=== PATIENT | female | born 1945 | race Caucasian/White ===

== ENCOUNTER 2017-01-18 09:42 | Observation (INO) | payer MEDICARE, BC ==
--- NOTE | ~2017-01-18 | DS ---
Discharge Summary [facility] [address] [place]. [address] NAME: NICHOLE GUARDADO : 41 STATUS : DIS Shanice PAT#: [id number] AGE: 71 ADM/REG DATE : 01/18/17 MR#: [id number] REPORT SERV DATE: 01/20/17 DICTATED BY: JR. HERNANDEZ WILLIAM JOHN DATE: 01/19/17 REPORT STATUS : Draft TRANSCRIBED BY: ALHAJI DATE: 01/19/17 ADMISSION DATE: 01/18/2017 DISCHARGE DATE: 01/19/2017 DISCHARGE DIAGNOSES: Include: 1. Atrial fibrillation with rapid ventricular response with reversion to sinus rhythm after synchronized cardioversion. 2. History of hypertension. 3. History of hyperlipidemia. 4. History of gastroesophageal reflux disease. 5. Mild systolic heart failure with ejection fraction 45%. OPERATIONS, PROCEDURES, AND TREATMENTS: Include: 1. Direct current cardioversion by Dr. Hicks on 01/19. 2. Chest x-ray done 01/18 with mild blunting of the left costophrenic angle and vascular crowding. 3. Echocardiogram, which showed left ventricular size to be normal, left ventricular systolic function with mild global hypokinesia and ejection fraction 45%, systolic function was indeterminate, right ventricular size and function was normal, there was no significant valvular disease. DISCHARGE MEDICATIONS: Include: 1. Eliquis 5 mg orally twice a day. 2. Lipitor 20 mg orally daily. 3. Calcium plus D two tablets orally daily. 4. Omeprazole 40 daily. 5. Sotalol 40 twice a day. 6. Multivitamin tablet orally daily. 7. Flaxseed oil 1200 mg orally daily. 8. B complex daily. 9. Cranberry 850 daily. 10.Vitamin C one tablet daily. 11.Lasix 20 mg daily p.r.n. for shortness of breath. HOSPITAL COURSE: The patient is a 71-year-old female, who presented to the emergency room on 01/18/2017 with complaint of shortness of breath and palpitations with "racing heart." The patient has a history of atrial fibrillation for at least five years and has been cardioverted many times, most recently in November. She previously saw Dr. Taylor at [place] and was on propafenone over the last 18 months approximately. She is currently on Eliquis. She just got back from a cruise. 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 Initial exam showed heart rate 96, blood pressure 132/73, respiratory rate of 18. Exam was unremarkable, except an irregularly irregular heart rhythm. Laboratory was unremarkable. EKG showed atrial fibrillation with rapid ventricular response initially at 140-150 beats per minute. A chest x-ray showed changes of fluid overload. Discharge Summary [address] [address] NAME: NICHOLE GUARDADO : 41 STATUS : DIS Shanice PAT#: [id number] AGE: 71 ADM/REG DATE : 01/18/17 MR#: [id number] REPORT SERV DATE: 01/20/17 DICTATED BY: JR. HERNANDEZ WILLIAM JOHN DATE: 01/19/17 REPORT STATUS : Draft TRANSCRIBED BY: ALHAJI DATE: 01/19/17 The patient was admitted to the clinical decision unit for atrial fibrillation with rapid response with fluid overload secondary to rapid ventricular response. She was gently diuresed and had an echocardiogram, which is detailed above. This did show mild systolic heart failure. The patient was placed on sotalol, her propafenone was discontinued, and she underwent a direct current cardioversion on 01/19 with success and total resolution of her shortness of breath. The patient will be discharged home on sotalol and Eliquis and follow up with Dr. Lyon in one week. Diet will be regular. Activity as tolerated. For discharge exam and laboratory, please see daily progress note. WJF/ALHAJI Paulino Hernandez Jr, MD / [id number] CC: Paulino Hernandez Jr, MD Donald Hartsfield, D.O.
--- NOTE | ~2017-01-18 | CN ---
Consultation Report [facility] [address] [place]. [address] NAME: NICHOLE GUARDADO : 41 STATUS : ADM Shanice PAT#: [id number] AGE: 71 ADM/REG DATE : 01/18/17 MR#: [id number] REPORT SERV DATE: 01/18/17 DICTATED BY: XAVI MART DATE: 01/18/17 REPORT STATUS : Draft TRANSCRIBED BY: MODL DATE: 01/18/17 CARDIOLOGY CONSULTATION DATE OF CONSULTATION: 01/18/2017 REASON FOR CONSULTATION: Recurrent atrial fibrillation/flutter. HISTORY OF PRESENT ILLNESS: The patient is a 71-year-old female with a history of paroxysmal atrial fibrillation, previously followed by Dr. Cele Taylor at the [facility] in [place]. The patient reports a history of five cardioversions in the last four years. Most recent cardioversion was in November 2016. The patient has been on chronic Eliquis and propafenone for stroke prophylaxis and for prevention of her atrial fibrillation. There has been a recent discussion per the patient with Dr. Boyle regarding possible referral for ablation or for transition to from propafenone to amiodarone. Amiodarone was not initiated due to the patient's hesitance due to potential long-term side effects. The patient in the wee hours this morning developed acute onset of rapid palpitations and racing with associated dyspnea. She denies chest pain. She was seen in the emergency department and noted to be in atrial fibrillation with rapid ventricular rate, treated with intravenous diltiazem with decrease in heart rate and improvement in symptoms. Initial troponin was negative with elevated beta natriuretic peptide, elevated at 444. Chest x-ray suggested mild congestive heart failure. Subsequent EKG and telemetry demonstrating intermittent atrial fibrillation and atypical atrial flutter. The patient has been on chronic Eliquis. She denies any missed doses in the last month. PAST MEDICAL HISTORY: 1. Paroxysmal atrial fibrillation with five cardioversions in the last four years , on propafenone and Eliquis. 2. Chronic anticoagulation, on Eliquis. 3. GERD. 4. Anxiety disorder. SOCIAL HISTORY: Denies previous tobacco, alcohol, or illicit drug use. FAMILY HISTORY: Father with history of myocardial infarction, older age. REVIEW OF SYSTEMS: Negative for all organ systems except per the history of present illness. PHYSICAL EXAMINATION: VITAL SIGNS: Blood pressure 142/100, pulse currently 106 and irregular, respirations 16 and unlabored, saturating 98% on 2 liters nasal cannula. GENERAL: Elderly female, in no acute distress. HEENT: Normal. Consultation Report [place] [id number] [place]. [address] NAME: NICHOLE GUARDADO : 41 STATUS : ADM Shanice PAT#: [id number] AGE: 71 ADM/REG DATE : 01/18/17 MR#: [id number] REPORT SERV DATE: 01/18/17 DICTATED BY: XAVI MART DATE: 01/18/17 REPORT STATUS : Draft TRANSCRIBED BY: MODL DATE: 01/18/17 NECK: Supple, no JVD or bruit, normal carotid upstroke bilaterally, no thyromegaly. LUNGS: Crackles are noted in the bases bilaterally. CARDIOVASCULAR: Irregularly regular rhythm. ABDOMEN: Bowel sounds positive, soft, nontender, and nondistended. No masses or aortic bruits. No hepatosplenomegaly or hepatojugular reflux. EXTREMITIES: No edema. Normal pulses. No clubbing or cyanosis. SKIN: Warm and dry, no significant rash. NEUROLOGIC: Alert and oriented x 3. Appropriate mood. LABORATORY DATA: Sodium 142, potassium 3.7, chloride 107, BUN 10, creatinine 0.74, GFR 93 mL per minute, glucose 107, magnesium 1.9. WBC 10.7, hemoglobin 14, hematocrit 39.4, platelets 204,000. Troponin less than 0.02 with a beta natriuretic peptide of 444. EKG: EKG on admission appears to be atypical atrial flutter versus atrial fibrillation. IMPRESSION: 1. Paroxysmal atrial fibrillation/flutter. Discontinue propafenone and Toprol or metoprolol. Begin sotalol 40 mg b.i.d. First dose now. Continue Eliquis. Schedule the patient for cardioversion in the a.m. Continue intravenous diltiazem at this time for rate control. The risks, benefits, alternatives of cardioversion have been discussed with the patient. Complications including but not limited to, , myocardial infarction, stroke, superficial skin burn, over-sedation and complications of respiratory failure, hypotension and/or bradycardia as well as the potential for life-threatening arrhythmias and asystole been discussed with the patient. The patient voices understanding to the potential risks and desires to proceed. 2. Hypertension, mildly elevated on admission. We will continue to follow the same. 3. Congestive heart failure by exam, likely rate related. Echocardiogram to evaluate left ventricular systolic function. The patient reports previous nuclear stress test as well as echocardiogram in the recent past. Old records have been ordered. Thank you for the opportunity to see the patient in consultation. We will continue to follow the patient with you. CSL/ALHAJI Mario Mart M.D. / [id number] CC: Paulino Hernandez Jr, MD Donald Hartsfield, D.O.
--- NOTE | ~2017-01-18 | OP ---
Record Of Operation [facility] [address] [place]. [address] NAME: NICHOLE GUARDADO : 41 STATUS : ADM Shanice PAT#: [id number] AGE: 71 ADM/REG DATE : 01/18/17 MR#: [id number] REPORT SERV DATE: 01/19/17 DICTATED BY: DATE: REPORT STATUS : Draft TRANSCRIBED BY: MODL DATE: 01/19/17 DATE OF PROCEDURE: 01/19/2017 CHIEF COMPLAINT/REASON FOR PROCEDURE: Atrial fibrillation. Written informed consent obtained. Please see chart for documentation. It was verified that the patient had been on therapeutic anticoagulation for greater than four to six weeks time. With the assistance of my Anesthesia colleague, she was sedated for the procedure. Following verification of sedation, DC cardioversion was performed, 200 joules x1 with return to sinus rhythm. IMPRESSION: Successful DC cardioversion. [facility]/ALHAJI Mickie Hicks M.D. / [id number] CC: Paulino Hernandez Jr, MD Donald Hartsfield, D.O.
--- NOTE | ~2017-01-18 | HP ---
History And Physical [place] [id number] [place]. [address] NAME: NICHOLE GUARDADO : 41 STATUS : ADM Shanice PAT#: [id number] AGE: 71 ADM/REG DATE : 01/18/17 MR#: [id number] REPORT SERV DATE: 01/18/17 DICTATED BY: MARA SOLER DATE: 01/18/17 REPORT STATUS : Draft TRANSCRIBED BY: ALHAJI DATE: 01/18/17 DATE OF ADMISSION: 01/18/2017 CHIEF COMPLAINT: Shortness of breath, heart racing. HISTORY OF PRESENT ILLNESS: The patient is a 71-year-old white female. The patient reports she has had AFib fibrillation for at least the last five years. She has been cardioverted five times, last cardioverted in November. She previously saw Dr. Boyle at [facility]. She has been on propafenone over the last year and a half, and she is currently on Eliquis. 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 She felt short of breath and had some pressure in her back. She had no chest pain. She knew she was in AFib. She has had several episodes in the past, and she presented to the hospital. She has had no leg edema that she knows of and no weight gain. She has had a slight cough, but no real sputum, no fevers, no chills. PAST MEDICAL HISTORY: 1. AFib. 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 3. Mitral valve prolapse. 4. Hypertension. 5. Hyperlipidemia. 6. Osteoarthritis. 7. GERD. ALLERGIES: SELDANE, AZITHROMYCIN, AND CIPRO. SOCIAL HISTORY: She is a nonsmoker, nondrinker. She is . She lives independently. FAMILY HISTORY: Positive for her mom had diabetes. Her father had CAD in his 80s. PAST SURGICAL HISTORY: She has had a tonsillectomy and a kidney biopsy in the 1970s. HOME MEDICATIONS: Fully reviewed and attached in the MAR. REVIEW OF SYSTEMS: A full 10-point review of systems obtained, pertinent positives mentioned in the HPI. PHYSICAL EXAMINATION: VITAL SIGNS: Pulse is currently 96, BP 132/73, sats 95%, respiratory rate 18. GENERAL: A Well-developed white female, in no apparent distress. HEENT: Normocephalic, atraumatic. Throat is clear. NECK: Supple. HEART: Irregularly irregular. LUNGS: She has crackles about one-third of her lung bases. ABDOMEN: Soft, nontender, nondistended. EXTREMITIES: Warm and dry. History And Physical [place] [address] [place]. [address] NAME: NICHOLE GUARDADO : 41 STATUS : ADM Shanice PAT#: [id number] AGE: 71 ADM/REG DATE : 01/18/17 MR#: [id number] REPORT SERV DATE: 01/18/17 DICTATED BY: MARA SOLER DATE: 01/18/17 REPORT STATUS : Draft TRANSCRIBED BY: ALHAJI DATE: 01/18/17 SKIN: Intact. She has no peripheral edema. NEURO: She is alert. She is oriented to person, place, and time and has symmetrical strength and tone in all four extremities as well and her speech is intact. LABORATORY AND X-RAY: White count 10.7, H and H 14 and 39, platelets are 204, coags are normal. Sodium 142, potassium 3.7, chloride 107, CO2 of 25, BUN and creatinine 10 and 0.7, her glucose 107. LFTs are normal. Albumin 3.3. Troponin is 0.02. BNP is 444. Chest x- ray shows mild CHF with blunting of the left costophrenic angle. EKG showed AFib with RVR with a rate initially in the 140s to 150s with no acute ST-T wave changes. ASSESSMENT/PLAN: 1. Atrial fibrillation with rapid ventricular response with associated congestive changes on x-ray. We will continue her Cardizem drip for now. She is currently rate controlled. We will give her one dose of Lasix IV. We will continue propafenone, her Eliquis. Placed her on tele bed. I am going to obtain records from [facility]. I am certain she has had an echo. We will repeat her EKG in the morning. We will have our pack master here to see her in consultation and to see if they have any additional options for her to control her atrial fibrillation. We will do two more sets of cardiac enzymes, monitor in's and out's, daily weights, and go from there. 2. History of hypertension. Continue home beta-blockade. 3. History of hyperlipidemia. 4. History of gastroesophageal reflux disease. 5. Deep venous thrombosis prophylaxis, already fully anticoagulated with Eliquis. 6. Disposition, pending. MARTIN/ALHAJI Mara Soler M.D. / [id number] CC: Paulino Hernandez Jr, MD Donald Hartsfield, D.O.
[2017-01-18 09:40] LABS: BASOPHILS 0.3 %; BASOPHILS ABSOLUTE 0.03 10/3/uL (0.0-0.16); EOSINOPHILS 0.2 %; EOSINOPHILS ABSOLUTE 0.02 10/3/uL (0.0-0.53); HEMATOCRIT 39.4 % (36.0-48.0); IMMATURE GRANULOCYTES 0.3 %; IMMATURE GRANULOCYTES ABSOLUTE 0.03 10/3/uL (0.0-0.11); LYMPHOCYTES 10.9 %; LYMPHOCYTES ABSOLUTE 1.17 10/3/uL (0.67-4.30); MEAN CORPUS HGB CONC 35.5 g/dL (32.0-36.0); MEAN CORPUSCULAR HEMOGLOB 34.9 pg (26.0-34.0); MEAN CORPUSCULAR VOLUME 98.3 fL (80-100); MEAN PLATELET VOLUME 10.3 fL (9.2-13.0); MONOCYTES 9.8 %; MONOCYTES ABSOLUTE 1.05 10/3/uL (0.21-1.20); NEUTROPHILS 78.5 %; NEUTROPHILS ABSOLUTE 8.41 10/3/uL (2.02-8.40); PLATELET COUNT 204 10/3/uL (150-400); RBC DISTRIBUTION WIDTH 12.3 % (12.0-16.0); RED CELL COUNT 4.01 10/6/uL (4.0-5.6); WHITE BLOOD CELLS 10.7 10/3/uL (4.5-10.5)
[2017-01-18 09:41] LABS: MANUAL DIFF NO %
[2017-01-18 09:47] LABS: INTERNATIONAL NORMAL RATI 1.1 UNITS (-); PARTIAL THROMBO TIME 30.8 SEC (22.5-37.2); PROTIME (NOT ORD) 14.4 SEC (12.0-14.5)
[2017-01-18 09:59] LABS: ALBUMIN 3.3 G/DL (3.5-5.0); ALKALINE PHOSPHATASE 111 U/L (45-117); BUN (BLOOD UREA NITROGEN) 10 MG/DL (6-23); CALCIUM, SERUM 8.6 MG/DL (8.5-10.4); CHEST PAIN PROFILE TAT 0 Hrs 23 Mins; CHLORIDE, SERUM 107 MMOL/L (96-112); CO2 (CARBON DIOXIDE) 25 MMOL/L (24-34); CREATININE 0.74 MG/DL (0.55-1.02); DIRECT BILIRUBIN 0.2 MG/DL (0.0-0.4); GFR AFRICAN AMERICAN 93 ML/MIN (>=60); GFR NON AFRICAN AMERICAN 80 ML/MIN (>=60); GLUCOSE, SERUM 107 MG/DL (60-99); INDIRECT BILIRUBIN(NOT ORDER) 0.9 MG/DL (0.1-0.9); POTASSIUM, SERUM 3.7 MMOL/L (3.5-5.3); SGOT(AST) 33 U/L (5-40); SGPT(ALT) 51 U/L (5-65); SODIUM, SERUM 142 MMOL/L (135-148); TOTAL BILIRUBIN 1.1 MG/DL (0-1.2); TOTAL PROTEIN 6.5 G/DL (6.0-8.5); TROPONIN I <0.02 NG/ML (<0.05)
[2017-01-18] MEDS ORDERED: ELIQUIS 5 MG TAB5 MG PO (12:19)
[2017-01-18] MEDS ORDERED: RYTHMOL300 MG PO (12:19)
[2017-01-18] MEDS ORDERED: TOPXL25 PO (12:19)
[2017-01-18] MEDS ORDERED: CENTRUM PO (12:20)
[2017-01-18] MEDS ORDERED: PRILOSEC40 MG PO (12:20)
[2017-01-18] MEDS ORDERED: LIPITOR20 PO (12:20)
[2017-01-18] MEDS ORDERED: OMEGA PO (12:22)
[2017-01-18] MEDS ORDERED: FLAXSEED OIL PO (12:22)
[2017-01-18] MEDS ORDERED: SUPER B COMP PO (12:22)
[2017-01-18] MEDS ORDERED: VITC500 PO (12:23)
[2017-01-18] MEDS ORDERED: CRANBERRY425 MG PO (12:23)
[2017-01-18] MEDS ORDERED: ALIGN4 MG PO (12:24)
[2017-01-18] MEDS ORDERED: CITRACAL PO (12:24)
[2017-01-18] MEDS ORDERED: ACET500CAP PO (12:25)
[2017-01-18 17:58] LABS: T4 (THYROXINE) TOTAL 9.2 MCG/DL (4.5-12.0); TROPONIN I <0.02 NG/ML (<0.05)
[2017-01-19 07:07] LABS: BASOPHILS 0.3 %; BASOPHILS ABSOLUTE 0.03 10/3/uL (0.0-0.16); EOSINOPHILS 1.6 %; EOSINOPHILS ABSOLUTE 0.15 10/3/uL (0.0-0.53); HEMATOCRIT 41.3 % (36.0-48.0); IMMATURE GRANULOCYTES 0.2 %; IMMATURE GRANULOCYTES ABSOLUTE 0.02 10/3/uL (0.0-0.11); LYMPHOCYTES 12.8 %; LYMPHOCYTES ABSOLUTE 1.23 10/3/uL (0.67-4.30); MEAN CORPUS HGB CONC 36.3 g/dL (32.0-36.0); MEAN CORPUSCULAR HEMOGLOB 35.1 pg (26.0-34.0); MEAN CORPUSCULAR VOLUME 96.7 fL (80-100); MEAN PLATELET VOLUME 9.8 fL (9.2-13.0); MONOCYTES 11.3 %; MONOCYTES ABSOLUTE 1.09 10/3/uL (0.21-1.20); NEUTROPHILS 73.8 %; NEUTROPHILS ABSOLUTE 7.09 10/3/uL (2.02-8.40); PLATELET COUNT 222 10/3/uL (150-400); RBC DISTRIBUTION WIDTH 12.7 % (12.0-16.0); RED CELL COUNT 4.27 10/6/uL (4.0-5.6); WHITE BLOOD CELLS 9.6 10/3/uL (4.5-10.5)
[2017-01-19 07:09] LABS: MANUAL DIFF NO %
[2017-01-19 07:26] LABS: BUN (BLOOD UREA NITROGEN) 13 MG/DL (6-23); CALCIUM, SERUM 9.1 MG/DL (8.5-10.4); CHLORIDE, SERUM 105 MMOL/L (96-112); CO2 (CARBON DIOXIDE) 27 MMOL/L (24-34); CREATININE 0.82 MG/DL (0.55-1.02); GFR AFRICAN AMERICAN 82 ML/MIN (>=60); GFR NON AFRICAN AMERICAN 71 ML/MIN (>=60); GLUCOSE, SERUM 113 MG/DL (60-99); POTASSIUM, SERUM 3.8 MMOL/L (3.5-5.3); SODIUM, SERUM 140 MMOL/L (135-148)
[2017-01-19 12:37] LABS: TROPONIN I <0.02 NG/ML (<0.05)
[2017-01-19] MEDS ORDERED: L20 PO (16:35)
[2017-01-19] MEDS ORDERED: BETAPACE80 PO (16:41)
[2017-01-19] MEDS ORDERED: KLOR-CON M2020 MEQ PO (16:42)
[2017-01-25] MEDS ORDERED: LAN25 PO (12:20)
[2017-01-31] MEDS ORDERED: L20 PO (20:50)
[2017-01-31] MEDS ORDERED: LAN25 PO (20:50)
[2017-01-31] MEDS ORDERED: KDUR20 PO (20:51)
[2017-01-31] MEDS ORDERED: LIPITOR20 PO (20:51)
[2017-01-31] MEDS ORDERED: BETAPACE80 PO (20:51)
[2017-01-31] MEDS ORDERED: PRILOSEC40 MG PO (20:51)
[2017-01-31] MEDS ORDERED: ELIQUIS 5 MG TAB5 MG PO (20:51)
[2017-01-31] MEDS ORDERED: CRANBERRY PO (20:52)
[2017-01-31] MEDS ORDERED: MULTIVIT/MIN PO (20:52)
[2017-01-31] MEDS ORDERED: FISH OIL PO (20:53)
[2017-01-31] MEDS ORDERED: B COMPLETE PO (20:53)
[2017-01-31] MEDS ORDERED: FLAXSEED PO (20:53)
[2017-01-31] MEDS ORDERED: CITRACAL PO (20:54)
[2017-03-04] MEDS ORDERED: BL FLAX SEED1000 MG PO (10:22)
[2017-03-04] MEDS ORDERED: BETAPACE80 PO (10:24)
[2017-03-04] MEDS ORDERED: ALIGN4 MG PO (10:24)
[2017-03-04] MEDS ORDERED: ACET500CAP PO (10:24)
[2017-03-04] MEDS ORDERED: VITC500 PO (10:25)
[2017-03-12] MEDS ORDERED: LOP100 PO (11:46)
[2017-03-12] MEDS ORDERED: LIPITOR20 PO (11:46)
[2017-03-12] MEDS ORDERED: ACET500CAP PO (11:46)
[2017-03-12] MEDS ORDERED: ALIGN4 MG PO (11:47)
[2017-03-12] MEDS ORDERED: ELIQUIS 5 MG TAB5 MG PO (11:47)
[2017-03-12] MEDS ORDERED: L20 PO (11:47)
[2017-03-12] MEDS ORDERED: VITC500 PO (11:48)
[2017-03-12] MEDS ORDERED: VITAMIN B PO (11:48)
[2017-03-12] MEDS ORDERED: CITRACAL PO (11:49)
[2017-03-12] MEDS ORDERED: FLAXSEED OIL1000 MG PO (11:49)
[2017-03-12] MEDS ORDERED: PRILOSEC40 MG PO (11:50)
[2017-03-12] MEDS ORDERED: LEVAQUIN750 MG PO (11:50)
[2017-03-12] MEDS ORDERED: MULTIVIT/MIN PO (11:50)
[2017-03-12] MEDS ORDERED: CRANBERRY PO (11:51)
[2017-03-12] MEDS ORDERED: KLOR-CON M2020 MEQ PO (11:51)
[2017-03-13] MEDS ORDERED: CORDARONE PO ×2 (11:31→11:33)
== END 2017-01-19 16:58 | disposition home or self-care (01) ==
LOC: ER 09:42 → CDU1 11:40
PROVIDERS: Emergency Medicine; Internal Medicine
DX: I48.0 Paroxysmal atrial fibrillation (principal); I11.0 Hypertensive heart disease with heart failure; E78.5 Hyperlipidemia, unspecified; F41.9 Anxiety disorder, unspecified; M81.0 Age-related osteoporosis without current pathological fracture; E78.00 Pure hypercholesterolemia, unspecified; K21.9 Gastro-esophageal reflux disease without esophagitis; M19.90 Unspecified osteoarthritis, unspecified site; Z88.1 Allergy status to other antibiotic agents; Z79.899 Other long term (current) drug therapy; Z88.8 Allergy status to other drugs, medicaments and biological substances; Z83.3 Family history of diabetes mellitus; Z82.49 Family history of ischemic heart disease and other diseases of the circulatory system; Z90.89 Acquired absence of other organs; Z98.890 Other specified postprocedural states; Z79.01 Long term (current) use of anticoagulants
CPT/HCPCS: 71010; 80048; 80076; 83735; 83880; 84436; 84443; 84484; 85025; 85610; 85730; 92960; 93005; 93306; 96374; 96375; 96376; 99285; A9270-GY; G0378

== ENCOUNTER 2017-01-31 21:06 | Observation (INO) | payer MEDICARE, BC ==
--- NOTE | ~2017-01-31 | HP ---
History And Physical [facility] [address] [place]. [address] NAME: NICHOLE GUARDADO : 41 STATUS : ADM Shanice PAT#: [id number] AGE: 71 ADM/REG DATE : 01/31/17 MR#: [id number] REPORT SERV DATE: 02/01/17 DICTATED BY: XAVI MART DATE: 02/01/17 REPORT STATUS : Draft TRANSCRIBED BY: MODVinnie DATE: 02/01/17 DATE OF ADMISSION: 01/31/2017 CHIEF COMPLAINT: Palpitations. HISTORY OF PRESENT ILLNESS: The patient is a 71-year-old female with known paroxysmal atrial fibrillation. She has had previous inadequate control on propafenone and flecainide. The patient has previously refused amiodarone. Multaq was unaffordable. A total of five cardioversions in the last several years. Most recently, last week with transient conversion to sinus rhythm while on sotalol. She developed recurrent palpitations with generalized weakness and fatigue and presented to the emergency department. She was begun on intravenous diltiazem with rate control. She was recommended for discharge to home and refused the same. Recently, seen in the office on 01/24/2017 with arrangements for elective cardioversion as described above, status post cardioversion with transient conversion to sinus rhythm. She is chronically anticoagulated on Eliquis, she has missed no Eliquis doses over the last thirty days. On her last office visit, we discussed referral to electrophysiology for consideration for ablation. This had been previously discussed and the patient had previously declined the same. In the outpatient setting, she had agreed to the same and electrophysiology consultation had been requested. She now requests inpatient EP consultation. She reports that with intravenous diltiazem both in the past and currently, she develops headache. PAST MEDICAL HISTORY: 1. Paroxysmal atrial fibrillation - previous propafenone, flecainide, and now sotalol ineffective at rate control. Multiple cardioversions in the past over the last several years with the most recent cardioversion last week with transient conversion to sinus rhythm. 2. Chronic anticoagulation on Eliquis - uninterrupted for greater than thirty days. 3. Hyperlipidemia. SOCIAL HISTORY: Denies previous tobacco, alcohol, or illicit drug use. FAMILY HISTORY: Father with coronary artery disease in older age. Mother with diabetes mellitus. REVIEW OF SYSTEMS: Review of systems negative for all organ systems except per the history of present illness. DATA: Echocardiogram 01/18/2017, ejection fraction mildly depressed at 45%. No significant valvular heart disease. PHYSICAL EXAMINATION: VITAL SIGNS: Blood pressure 130/63 on a diltiazem drip, rate 78, respirations 12 and unlabored, weight 78 kg. History And Physical [address] [place]. [address] NAME: NICHOLE GUARDADO : 41 STATUS : ADM Shanice PAT#: [id number] AGE: 71 ADM/REG DATE : 01/31/17 MR#: [id number] REPORT SERV DATE: 02/01/17 DICTATED BY: XAVI MART DATE: 02/01/17 REPORT STATUS : Draft TRANSCRIBED BY: ALHAJI DATE: 02/01/17 GENERAL: Elderly female, in no acute distress. HEENT: Normal. NECK: Supple, no JVD or bruit, normal carotid upstroke bilaterally, no thyromegaly. LUNGS: Clear to auscultation and percussion. No wheezes, rales or rhonchi. No use of accessory muscles. CARDIOLOGY: Irregularly regular rhythm, normal S1, S2, no thrill, no murmur, rubs or gallops, normal PMI. ABDOMEN: Bowel sounds positive, soft, nontender, and nondistended. No masses or aortic bruits. No hepatosplenomegaly or hepatojugular reflux. EXTREMITIES: No edema. Normal pulses. No clubbing or cyanosis. SKIN: Warm and dry, no significant rash. NEUROLOGIC: Alert and oriented x 3. Appropriate mood. LABORATORY DATA: Sodium 142, potassium 3.9, chloride 106, BUN 10, creatinine 0.7, glucose 90, magnesium 2.2. WBC 8.6, hemoglobin 14.5, hematocrit 41, platelets 282,000. Troponin less than 0.02. EKG: On presentation, atrial fibrillation with rapid ventricular rate of 123 beats per minute. Possible old anteroseptal wall myocardial infarction. EKG unchanged. Subsequent EKG after intravenous diltiazem, atrial fibrillation with controlled ventricular rate. IMPRESSION: Paroxysmal atrial fibrillation - recent recurrence following electrical cardioversion on sotalol. The patient is currently rate controlled on intravenous diltiazem with complaints of headaches secondary to diltiazem. We will transition to oral metoprolol in addition to sotalol and restart digoxin. Inpatient electrophysiology consultation on patient request. I believe the patient has an unrealistic expectation for atrial fibrillation ablation during this admission. We have discussed the logistics and difficulties regarding the same. She is hemodynamically stable and there is no contraindication to discharge with adequate rate control on oral medications. We will await evaluation by electrophysiology. Await results of EP consultation. Anticipate discharge with adequate rate control on oral medications until outpatient ablation procedure. CSL/MODVinnie Mario Matr M.D. / [id number] CC: Gloria Gonsalez D.O.
--- NOTE | ~2017-01-31 | CN ---
Consultation Report [facility] [address] [place]. [address] NAME: NICHOLE GUARDADO : 41 STATUS : ADM Shanice PAT#: [id number] AGE: 71 ADM/REG DATE : 01/31/17 MR#: [id number] REPORT SERV DATE: 02/01/17 DICTATED BY: EDUARDO SOMERS DATE: 02/01/17 REPORT STATUS : Draft TRANSCRIBED BY: ALHAJI DATE: 02/01/17 DATE OF CONSULTATION: INDICATION: Recurrent atrial fibrillation. HISTORY: The patient is a 71-year-old white female who is now followed by Dr. Mart with a history of atrial fibrillation dating back to 2006. She had her first event at that time, requiring hospital visit to the hospital and medication. In 2011, she had her first cardioversion. This lasted for four years, but recently has required cardioversions at increasing frequency including 01/2016, 05/2016, a cardioversion in the fall while vacationing with family in [place], [place], another in 09/2016, again in 11/2015, and twice recently. She is markedly symptomatic with dizziness, breathlessness, palpitations, and is unable to carry out her regular work. Dr. Mart has tried to adjust medications without being able to completely temper the arrhythmia. She is not able to afford dronedarone. She has not been controlled on propafenone or flecainide. MEDICATIONS: Current home medications are Apixaban 5 b.i.d., atorvastatin 20 a day, B complex vitamins, calcium citrate 5 per day, digoxin 0.125 daily, furosemide 20 a day, multivitamins daily, omeprazole 40 a day, potassium 20 p.r.n., sotalol 80 b.i.d., cranberry over the counter, and flaxseed oil. ALLERGIES OR INTOLERANCES: Azithromycin, ciprofloxacin, lorazepam, terfenadine, cephalexin. SOCIAL HISTORY: Lives independently. One son lives in the [facility] and a daughter lives in [place]. Negative for alcohol or tobacco use. FAMILY HISTORY: Father had coronary artery disease. Mother with diabetes. PAST MEDICAL HISTORY/REVIEW OF SYSTEMS: She has a history of GERD. She had a history of Bright's disease in 1970s. There is a clinical history of mitral valve prolapse, not documented on echo. She has some osteoarthritis. She is windowed. PAST SURGICAL HISTORY: She is status post tonsillectomy. She had a kidney biopsy in the 1970s. PHYSICAL EXAMINATION: GENERAL: A pleasant 71-year-old white female. VITAL SIGNS: On admission to the ER, blood pressure 123/73, pulse 123 and regular, respirations 18, presently her pulse is 60 and irregular. SKIN: No xanthelasmas. HEENT: She is normocephalic. There is no pallor. Sclerae are white. NECK: JVD is not elevated. No carotid bruits. CHEST: No crackles. Consultation Report [place] [id number] [facility] [place]. [address] NAME: NICHOLE GUARDADO : 41 STATUS : ADM Shanice PAT#: [id number] AGE: 71 ADM/REG DATE : 01/31/17 MR#: [id number] REPORT SERV DATE: 02/01/17 DICTATED BY: EDUARDO SOMERS DATE: 02/01/17 REPORT STATUS : Draft TRANSCRIBED BY: MODL DATE: 02/01/17 CARDIAC: S1 normal, S2 physiologic. There are no gallops or murmurs. ABDOMEN: Without tenderness. EXTREMITIES: Without edema. No clubbing. NEUROLOGIC: No focal deficits. MUSCULOSKELETAL: No kyphosis. LABORATORY DATA: BUN 10, creatinine 0.7, albumin slightly low at 3.3, potassium 3.9, magnesium 2.2. TSH 1.3. Hematology: White count 8.6, hemoglobin 14.5. IMPRESSION: Paroxysmal atrial fibrillation with increasing event frequency and poor response to pharmacologic therapy. We had a long discussion about other strategies including rate control and ablation. Because of the impact on her life, she would prefer ablation. I told her we will try to schedule an office visit for her with her son to discuss risks and benefits, but totally we will try to schedule this for the middle of next month. HECTOR/ALHAJI Eduardo Somers M.D. / [id number] CC: Gloria Gonsalez D.O. , [facility]
[2017-01-31 20:55] LABS: BASOPHILS 0.5 %; BASOPHILS ABSOLUTE 0.04 10/3/uL (0.0-0.16); EOSINOPHILS 2.7 %; EOSINOPHILS ABSOLUTE 0.23 10/3/uL (0.0-0.53); ER CBC TAT 0 Hrs 07 Mins; HEMOGLOBIN 14.5 g/dL (12.0-16.0); IMMATURE GRANULOCYTES 0.2 %; IMMATURE GRANULOCYTES ABSOLUTE 0.02 10/3/uL (0.0-0.11); LYMPHOCYTES 25.8 %; LYMPHOCYTES ABSOLUTE 2.22 10/3/uL (0.67-4.30); MEAN CORPUS HGB CONC 35.4 g/dL (32.0-36.0); MEAN CORPUSCULAR HEMOGLOB 34.4 pg (26.0-34.0); MEAN CORPUSCULAR VOLUME 97.4 fL (80-100); MONOCYTES 10.6 %; MONOCYTES ABSOLUTE 0.91 10/3/uL (0.21-1.20); NEUTROPHILS 60.2 %; PLATELET COUNT 282 10/3/uL (150-400); RBC DISTRIBUTION WIDTH 12.5 % (12.0-16.0); RED CELL COUNT 4.21 10/6/uL (4.0-5.6); WHITE BLOOD CELLS 8.6 10/3/uL (4.5-10.5)
[2017-01-31 20:56] LABS: MANUAL DIFF NO %
[2017-01-31 21:02] LABS: INTERNATIONAL NORMAL RATI 1.3 UNITS (-); PARTIAL THROMBO TIME 32.5 SEC (22.5-37.2); PROTIME (NOT ORD) 15.7 SEC (12.0-14.5)
[~2017-01-31 21:06] MED LIST: ACET500CAP PO; ALIGN4 MG PO; B COMPLETE PO; BETAPACE80 PO; CENTRUM PO; CITRACAL PO; CRANBERRY PO; CRANBERRY425 MG PO; ELIQUIS 5 MG TAB5 MG PO; FISH OIL PO; FLAXSEED OIL PO; FLAXSEED PO; KDUR20 PO; KLOR-CON M2020 MEQ PO; L20 PO; LAN25 PO; LIPITOR20 PO; MULTIVIT/MIN PO; OMEGA PO; PRILOSEC40 MG PO; RYTHMOL300 MG PO; SUPER B COMP PO; TOPXL25 PO; VITC500 PO
[2017-01-31 21:27] LABS: BUN (BLOOD UREA NITROGEN) 10 MG/DL (6-23); CHLORIDE, SERUM 106 MMOL/L (96-112); CO2 (CARBON DIOXIDE) 29 MMOL/L (24-34); DIGOXIN 0.7 NG/ML (0.8-2.0); GFR AFRICAN AMERICAN 100 ML/MIN (>=60); GFR NON AFRICAN AMERICAN 86 ML/MIN (>=60); GLUCOSE, SERUM 90 MG/DL (60-99); POTASSIUM, SERUM 3.9 MMOL/L (3.5-5.3); SODIUM, SERUM 142 MMOL/L (135-148); TROPONIN I <0.02 NG/ML (<0.05)
[2017-01-31 21:28] LABS: CHEST PAIN PROFILE TAT 0 Hrs 39 Mins
[2017-02-02] MEDS ORDERED: LOP100 PO (08:53)
[2017-03-04] MEDS ORDERED: BL FLAX SEED1000 MG PO (10:22)
[2017-03-04] MEDS ORDERED: BETAPACE80 PO (10:24)
[2017-03-04] MEDS ORDERED: ACET500CAP PO (10:24)
[2017-03-04] MEDS ORDERED: ALIGN4 MG PO (10:24)
[2017-03-04] MEDS ORDERED: VITC500 PO (10:25)
[2017-03-12] MEDS ORDERED: ACET500CAP PO (11:46)
[2017-03-12] MEDS ORDERED: LIPITOR20 PO (11:46)
[2017-03-12] MEDS ORDERED: LOP100 PO (11:46)
[2017-03-12] MEDS ORDERED: ELIQUIS 5 MG TAB5 MG PO (11:47)
[2017-03-12] MEDS ORDERED: L20 PO (11:47)
[2017-03-12] MEDS ORDERED: ALIGN4 MG PO (11:47)
[2017-03-12] MEDS ORDERED: VITC500 PO (11:48)
[2017-03-12] MEDS ORDERED: VITAMIN B PO (11:48)
[2017-03-12] MEDS ORDERED: CITRACAL PO (11:49)
[2017-03-12] MEDS ORDERED: FLAXSEED OIL1000 MG PO (11:49)
[2017-03-12] MEDS ORDERED: MULTIVIT/MIN PO (11:50)
[2017-03-12] MEDS ORDERED: LEVAQUIN750 MG PO (11:50)
[2017-03-12] MEDS ORDERED: PRILOSEC40 MG PO (11:50)
[2017-03-12] MEDS ORDERED: CRANBERRY PO (11:51)
[2017-03-12] MEDS ORDERED: KLOR-CON M2020 MEQ PO (11:51)
[2017-03-13] MEDS ORDERED: CORDARONE PO ×2 (11:31→11:33)
== END 2017-02-02 13:20 | disposition home or self-care (01) ==
LOC: ER 21:06 → 7NO 22:34
PROVIDERS: Nurse Practitioner Acute Care
DX: I48.0 Paroxysmal atrial fibrillation (principal); E78.2 Mixed hyperlipidemia; K21.9 Gastro-esophageal reflux disease without esophagitis; M19.90 Unspecified osteoarthritis, unspecified site; Z79.01 Long term (current) use of anticoagulants; Z88.1 Allergy status to other antibiotic agents; Z88.8 Allergy status to other drugs, medicaments and biological substances; Z79.899 Other long term (current) drug therapy; Z98.890 Other specified postprocedural states
CPT/HCPCS: 71010; 80048; 80162; 83735; 84484; 85025; 85610; 85730; 93005; 96374; 96376; 99285; A9270-GY; G0378

== ENCOUNTER 2017-03-08 05:56 | Inpatient (IN) | payer MEDICARE, BC ==
--- NOTE | ~2017-03-08 | TEE ---
Transesophageal Echocardiogram [facility] [address] [place]. [address] NAME: NICHOLE GUARDADO : 41 STATUS : REG REF PAT#: [id number] AGE: 71 ADM/REG DATE : 03/08/17 MR#: [id number] REPORT SERV DATE: 03/08/17 DICTATED BY: PAULINO BOLIVAR DATE: 03/08/17 REPORT STATUS : Draft TRANSCRIBED BY: ALHAJI DATE: 03/08/17 INDICATION: Atrial flutter preablation. PROCEDURE DESCRIPTION: After informed consent, the patient was sedated with propofol by the Anesthesia Department. The transesophageal probe was placed on the first attempt. There were no immediate complications. FINDINGS: 2D: 1. The aortic valve is trileaflet and opens adequately. 2. The ascending aorta is normal in size. 3. There is no evidence of left atrial appendage thrombus. 4. Overall left ventricular systolic function appears normal. EF approximately 55%. 5. No evidence pericardial effusion. 6. Right-sided chambers are normal in size. 7. The tricuspid valve is structurally normal. DOPPLER: Pulsed wave Doppler in the left atrial appendage is greater than 40 cm/second. COLOR FLOW: There is trace aortic, mitral, and tricuspid regurgitation. CONCLUSION: 1. NO EVIDENCE OF LEFT ATRIAL APPENDAGE THROMBUS. 2. NORMAL LEFT VENTRICULAR SYSTOLIC FUNCTION. RILEY/ALHAJI Paulino Bolivar M.D. / [id number] CC: Gloria Glass D.O.
[~2017-03-08 05:56] MED LIST changes: +BL FLAX SEED1000 MG PO; +LOP100 PO
[2017-03-08] MEDS ORDERED: LOP100 PO (06:30)
[2017-03-08 06:52] LABS: BASOPHILS 0.7 %; BASOPHILS ABSOLUTE 0.04 10/3/uL (0.0-0.16); EOSINOPHILS 3.5 %; EOSINOPHILS ABSOLUTE 0.21 10/3/uL (0.0-0.53); HEMATOCRIT 41.5 % (36.0-48.0); HEMOGLOBIN 14.8 g/dL (12.0-16.0); IMMATURE GRANULOCYTES 0.2 %; IMMATURE GRANULOCYTES ABSOLUTE 0.01 10/3/uL (0.0-0.11); LYMPHOCYTES 24.2 %; LYMPHOCYTES ABSOLUTE 1.47 10/3/uL (0.67-4.30); MANUAL DIFF NO %; MEAN CORPUS HGB CONC 35.7 g/dL (32.0-36.0); MEAN CORPUSCULAR HEMOGLOB 34.7 pg (26.0-34.0); MEAN CORPUSCULAR VOLUME 97.4 fL (80-100); MEAN PLATELET VOLUME 10.1 fL (9.2-13.0); MONOCYTES 15.6 %; MONOCYTES ABSOLUTE 0.95 10/3/uL (0.21-1.20); NEUTROPHILS 55.8 %; PLATELET COUNT 239 10/3/uL (150-400); RBC DISTRIBUTION WIDTH 13.1 % (12.0-16.0); RED CELL COUNT 4.26 10/6/uL (4.0-5.6); WHITE BLOOD CELLS 6.1 10/3/uL (4.5-10.5)
[2017-03-08 07:06] LABS: BUN (BLOOD UREA NITROGEN) 9 MG/DL (6-23); CALCIUM, SERUM 8.8 MG/DL (8.5-10.4); CHLORIDE, SERUM 111 MMOL/L (96-112); CO2 (CARBON DIOXIDE) 28 MMOL/L (24-34); CREATININE 0.73 MG/DL (0.55-1.02); GFR AFRICAN AMERICAN 95 ML/MIN (>=60); GFR NON AFRICAN AMERICAN 82 ML/MIN (>=60); GLUCOSE, SERUM 110 MG/DL (60-99); POTASSIUM, SERUM 3.8 MMOL/L (3.5-5.3); SODIUM, SERUM 144 MMOL/L (135-148)
[2017-03-10 04:34] LABS: BUN (BLOOD UREA NITROGEN) 8 MG/DL (6-23); CALCIUM, SERUM 8.5 MG/DL (8.5-10.4); CHLORIDE, SERUM 109 MMOL/L (96-112); CO2 (CARBON DIOXIDE) 29 MMOL/L (24-34); CREATININE 0.75 MG/DL (0.55-1.02); GFR AFRICAN AMERICAN 92 ML/MIN (>=60); GFR NON AFRICAN AMERICAN 79 ML/MIN (>=60); GLUCOSE, SERUM 110 MG/DL (60-99); SODIUM, SERUM 143 MMOL/L (135-148)
[2017-03-10 04:36] LABS: POTASSIUM, SERUM 4.7 MMOL/L (3.5-5.3)
[2017-03-10 07:28] LABS: BASOPHILS 0.2 %; BASOPHILS ABSOLUTE 0.02 10/3/uL (0.0-0.16); EOSINOPHILS 0.9 %; EOSINOPHILS ABSOLUTE 0.09 10/3/uL (0.0-0.53); HEMATOCRIT 37.7 % (36.0-48.0); HEMOGLOBIN 12.9 g/dL (12.0-16.0); IMMATURE GRANULOCYTES 0.4 %; IMMATURE GRANULOCYTES ABSOLUTE 0.04 10/3/uL (0.0-0.11); LYMPHOCYTES 11.9 %; LYMPHOCYTES ABSOLUTE 1.23 10/3/uL (0.67-4.30); MANUAL DIFF NO %; MEAN CORPUS HGB CONC 34.2 g/dL (32.0-36.0); MEAN CORPUSCULAR HEMOGLOB 34.2 pg (26.0-34.0); MEAN PLATELET VOLUME 10.1 fL (9.2-13.0); MONOCYTES 12.9 %; MONOCYTES ABSOLUTE 1.34 10/3/uL (0.21-1.20); NEUTROPHILS 73.7 %; NEUTROPHILS ABSOLUTE 7.65 10/3/uL (2.02-8.40); PLATELET COUNT 202 10/3/uL (150-400); RBC DISTRIBUTION WIDTH 13.3 % (12.0-16.0); RED CELL COUNT 3.77 10/6/uL (4.0-5.6); WHITE BLOOD CELLS 10.4 10/3/uL (4.5-10.5)
[2017-03-11 08:23] LABS: BUN (BLOOD UREA NITROGEN) 8 MG/DL (6-23); CALCIUM, SERUM 8.8 MG/DL (8.5-10.4); CHLORIDE, SERUM 104 MMOL/L (96-112); CO2 (CARBON DIOXIDE) 30 MMOL/L (24-34); CREATININE 0.71 MG/DL (0.55-1.02); GFR AFRICAN AMERICAN 98 ML/MIN (>=60); GFR NON AFRICAN AMERICAN 85 ML/MIN (>=60); GLUCOSE, SERUM 103 MG/DL (60-99); POTASSIUM, SERUM 3.9 MMOL/L (3.5-5.3); SODIUM, SERUM 139 MMOL/L (135-148)
[2017-03-11] MEDS ORDERED: LEVAQUIN750 MG PO (16:47)
[2017-03-12] MEDS ORDERED: LOP100 PO (11:46)
[2017-03-12] MEDS ORDERED: LIPITOR20 PO (11:46)
[2017-03-12] MEDS ORDERED: ACET500CAP PO (11:46)
[2017-03-12] MEDS ORDERED: ELIQUIS 5 MG TAB5 MG PO (11:47)
[2017-03-12] MEDS ORDERED: ALIGN4 MG PO (11:47)
[2017-03-12] MEDS ORDERED: L20 PO (11:47)
[2017-03-12] MEDS ORDERED: VITAMIN B PO (11:48)
[2017-03-12] MEDS ORDERED: VITC500 PO (11:48)
[2017-03-12] MEDS ORDERED: FLAXSEED OIL1000 MG PO (11:49)
[2017-03-12] MEDS ORDERED: CITRACAL PO (11:49)
[2017-03-12] MEDS ORDERED: PRILOSEC40 MG PO (11:50)
[2017-03-12] MEDS ORDERED: MULTIVIT/MIN PO (11:50)
[2017-03-12] MEDS ORDERED: LEVAQUIN750 MG PO (11:50)
[2017-03-12] MEDS ORDERED: KLOR-CON M2020 MEQ PO (11:51)
[2017-03-12] MEDS ORDERED: CRANBERRY PO (11:51)
[2017-03-13] MEDS ORDERED: CORDARONE PO ×2 (11:31→11:33)
== END 2017-03-11 17:50 | disposition home or self-care (01) | DRG 274 ==
LOC: CORLMH 05:56 → SSU1 06:15 → 5NO 03-10 14:52
PROVIDERS: Anesthesiology; Internal Medicine Clinical Cardiac Electrophysiology
PROC: 4A023FZ Measurement of Cardiac Rhythm, Percutaneous Approach (ICD-10-PCS; principal; 2017-03-08)
PROC: 02583ZZ Destruction of Conduction Mechanism, Percutaneous Approach (ICD-10-PCS; 2017-03-08)
PROC: 4A0234Z Measurement of Cardiac Electrical Activity, Percutaneous Approach (ICD-10-PCS; 2017-03-08)
PROC: 02K83ZZ Map Conduction Mechanism, Percutaneous Approach (ICD-10-PCS; 2017-03-08)
PROC: B246ZZ4 Ultrasonography of Right and Left Heart, Transesophageal (ICD-10-PCS; 2017-03-08)
DX: I48.1 Persistent atrial fibrillation (principal); J81.1 Chronic pulmonary edema; I10 Essential (primary) hypertension; K21.9 Gastro-esophageal reflux disease without esophagitis; E78.2 Mixed hyperlipidemia
CPT/HCPCS: 71010; 71020; 80048; 82962; 83735; 85025; 85347; 93005; 93312; 93320; 93325; 93613; 93655; 93656; 93657; 93662; A9270-GY; C1732; C1759; C1769; C1781; C1894; J1940; J2370; J2405; J2720; Q9967